=== PATIENT | female | born 1995 | race Caucasian/White ===

== ENCOUNTER 2022-01-31 17:23 | Emergency (ER) | payer OTHER ==
[2022-01-31 17:37] VITALS: BP 136/91
== END 2022-01-31 18:54 | disposition home or self-care (01) ==
LOC: ED 17:23
DX: S06.0X0A Concussion without loss of consciousness, initial encounter (principal); R60.0 Localized edema; Z28.310 Unvaccinated for COVID-19; V43.52XA Car driver injured in collision with other type car in traffic accident, initial encounter; Y92.410 Unspecified street and highway as the place of occurrence of the external cause

== ENCOUNTER 2025-01-07 14:54 | Emergency (ER) | payer OTHER ==
[~2025-01-07] VITALS: Ht 172.7 cm; Wt 74.0 kg
[~2025-01-07 14:54] MED LIST: PRENATAL ONE D1 EACH PO; PROMETHAZINE12.5 M5 PO
[2025-01-07] MEDS ORDERED: Ondansetron 4 MG/2 ML VIAL IV ONE (15:15)
[2025-01-07 17:37] VITALS: BP 108/93
== END 2025-01-07 17:37 | disposition home or self-care (01) ==
LOC: ED 14:54
DX: J11.1 Influenza due to unidentified influenza virus with other respiratory manifestations (principal)
CPT/HCPCS: J2405; J7120